=== PATIENT | male | born 1960 | race Caucasian/White ===

== ENCOUNTER 2017-09-06 13:36 | Emergency (ER) | payer OTHER ==
[~2017-09-06] VITALS: Ht 175.3 cm; Wt 69.0 kg
[2017-09-06 15:25] VITALS: BP 129/71
[2017-09-06] MEDS ORDERED: DOXYCYC MONO100 M1 PO (15:29)
== END 2017-09-06 15:25 | disposition home or self-care (01) | DRG 581 ==
LOC: ED 13:36
PROC: 0JQM0ZZ Repair Left Upper Leg Subcutaneous Tissue and Fascia, Open Approach (ICD-10-PCS; principal; 2017-09-06)
DX: S71.112A Laceration without foreign body, left thigh, initial encounter (principal); F17.210 Nicotine dependence, cigarettes, uncomplicated; W29.3XXA Contact with powered garden and outdoor hand tools and machinery, initial encounter; Y93.H2 Activity, gardening and landscaping; Y92.007 Garden or yard of unspecified non-institutional (private) residence as the place of occurrence of the external cause

== ENCOUNTER 2017-09-16 14:38 | Emergency (ER) | payer OTHER ==
[~2017-09-16] VITALS: Ht 175.3 cm; Wt 75.0 kg
[~2017-09-16 14:38] MED LIST: DOXYCYC MONO100 M1 PO
[2017-09-16 15:45] VITALS: BP 154/77
== END 2017-09-16 15:45 | disposition home or self-care (01) | DRG 950 ==
LOC: ED 14:38
DX: S71.112D Laceration without foreign body, left thigh, subsequent encounter (principal)

== ENCOUNTER 2017-09-21 09:48 | Emergency (ER) | payer OTHER ==
[~2017-09-21] VITALS: Ht 175.3 cm; Wt 70.0 kg
[2017-09-21 10:49] VITALS: BP 150/80
== END 2017-09-21 10:55 | disposition home or self-care (01) | DRG 950 ==
LOC: ED 09:48
DX: S71.112D Laceration without foreign body, left thigh, subsequent encounter (principal)